=== PATIENT | female | born 1985 | race Two or more races ===

== ENCOUNTER → 2016-04-21 | Outpatient (CLI) | payer BC ==
[~2016-04-21] MED LIST: AMOX1TAB67 PO; IBUP-1542 PO; IOHEXOL 100 ML ONE; NEOM28.33 TOP; SOD CHLORIDE 0.9% 100 ML ONE; TRAM50TA2 PO
--- NOTE | 2016-04-21 17:02 | RADRPT ---
PROCEDURE: XR Chest. CLINICAL INDICATION: Cough. TECHNIQUE: Single frontal view. COMPARISON: None. FINDINGS: The lungs are clear. The heart size is normal. There is no pleural effusion. There is no pneumothorax. IMPRESSION: 1. Normal chest radiograph. RPTAT: QQ .Elias Leonard MD, Date Time Electronically viewed and signed by .Elias Leonard MD, on 04/21/2016 17:01 .R/
== END | disposition home or self-care (01) ==
LOC: LAB 15:28
PROVIDERS: ATTEND Surgery Vascular Surgery
DX: R05 Cough (principal)
CPT/HCPCS: 71010; 86900; 86901; 87340; Q9967